=== PATIENT | female | born 1965 | race Caucasian/White ===

== ENCOUNTER 2025-05-10 12:17 | Emergency (ER) | payer MEDICAID ==
[~2025-05-10] VITALS: Ht 165.1 cm; Wt 118.2 kg
[2025-05-10 12:29] VITALS: TEMP 97.8
[2025-05-10 12:58] LABS: MEAN PLATELET VOLUME 8.1 FL (7.4-10.4); RED CELL DISTRIBUTION WIDTH 15.0 % (11.5-14.5)
[2025-05-10 13:59] LABS: CREATININE 0.95 MG/DL (0.40-0.90); TOTAL CARBON DIOXIDE 24.7 MMOL/L (24-32); eCRCL 56 ML/MIN; eGFR 60 ML/MIN
--- NOTE | 2025-05-10 15:17 | Physician Documentation ---
History of Present Illness ~ Chief Complaint: Abdominal Pain Stated Complaint: ABD PAIN Time Seen by MD: 16:13 HPI This is a 59-year-old female with a history of gastroparesis who presents with one day of right groin pain radiating down her right thigh, patient reports a feeling of tingling in her upper thigh. This patient states that she took one of the GLP 1 drugs and developed severe abdominal pain and required hospitalization. She adds that is since then she has had occasional gastroparesis states that recently she has had ongoing constipation. Takes she took MiraLax and Dulcolax without much benefit today she primarily complains of abdominal pain and right groin pain which he attributes to a hernia Day of Onset: May 10, 2025 Medication Reconciliation Allergies: Coded Allergies: latex (Verified Allergy, Unknown, 05/10/25) Scheduled Polyethylene Glycol 3350* (Miralax*), 1 PKT PO DAILY Scheduled PRN Hydrocodone Bit/Acetaminophen (Hydrocodone-Apap 10-325 Tablet), 1 TAB PO QID PRN PRN for pain Past Medical History Past Medical History: *GI/HEPATOBILIARY* (Gastroparesis) Review of Systems All Other Systems at this time: Reviewed and Negative ROS As stated above in the HPI, otherwise all systems are reviewed and negative. Physical Exam Vital Signs: Temperature: 97.8, Source: Temporal, Heart Rate: 54, Respiratory Rate: 18, BP: 145/103, Pulse Oximetry: 98, Weight: 118.180 Physical Exam VITALS: Reviewed and as above. GENERAL: Alert, nontoxic appearing, no apparent distress. HEENT: RESPIRATORY: No increased work of breathing, no respiratory distress, speaking in full clear sentences CHEST: CV: BACK: GI: tender to the right groin area via palpation , mild abdominal distention MUSCULOSKELETAL: SKIN: NEURO: PSYCH: Progress Results/Orders Results/Orders Orders - JEREMY GARCIA [employer]MECHANIC Ct Abdomen Pelvis (05/10/25 16:46) Completed Orders - JEREMY GARCIA [employer]/MECHANIC Ct Abdomen Pelvis (05/10/25 16:46) Vital Signs 05/10/25 05/10/25 05/10/25 05/10/25 12:29 16:26 17:27 17:46 Temp 97.8 Pulse 54 50 40 Resp 18 14 B/P (MAP) 145/103 144/87 (106) Pulse Ox 98 98 98 05/10/25 17:53 Pulse 40 B/P (MAP) 169/80 Pulse Ox 98 Laboratory Tests Test 05/10/25 12:43 White Blood Count 7.0 Red Blood Count 5.14 Hemoglobin 15.4 Hematocrit 46.2 H Mean Corpuscular Volume 89.8 Mean Corpuscular Hemoglobin 30.0 Mean Corpuscular Hemoglobin Concent 33.3 Red Cell Distribution Width 15.0 H Platelet Count 295 Mean Platelet Volume 8.1 Neutrophils (%) (Auto) 66.0 Lymphocytes (%) (Auto) 20.0 L Monocytes (%) (Auto) 6.9 Eosinophils (%) (Auto) 6.4 H Basophils (%) (Auto) 0.7 Neutrophils # (Auto) 4.6 Lymphocytes # (Auto) 1.4 Monocytes # (Auto) 0.5 Eosinophils # (Auto) 0.4 Basophils # (Auto) 0.0 CBC Comment Sodium Level 139 Potassium Level 4.4 Chloride Level 105 Carbon Dioxide Level 24.7 Anion Gap 9 Blood Urea Nitrogen 21 H Creatinine 0.95 H Estimated GFR/1.73 m2 60 BUN/Creatinine Ratio 22.1 H Glucose Level 88 Calcium Level 9.1 Total Bilirubin 0.9 Aspartate Amino Transf (AST/SGOT) 31 Alanine Aminotransferase (ALT/SGPT) 62 Alkaline Phosphatase 109 Total Protein 7.5 Albumin 3.5 Globulin 4.0 Albumin/Globulin Ratio 0.9 L Amylase Level 55 Lipase 23 Chemistry Comments Medical Decision Making Findings MSE performed in triage and patient returned to ED lobby by nursing staff to await available ED room CT indicates strangulation of a ventral hernia. However clinically, I suspect that the patient has an incarcerated fat filled hernia without evidence of bowel. Physical exam did not show any signs of reddened skin or stranding on the exterior. And does not have peritonitis Patient's pain appears to be manageable in the outpatient setting via pain medication. Her laboratory values show no signs of infection. Additionally, the patient's pain is primarily in the right pelvic region for unknown reasons as there was no acute findings in the CT I spoke with Dr. Cho regarding the patient he agrees that based on the patient's status that he would be happy to see her in the outpatient setting at his office Diff Dx GI Bleed:Consideration: Unlikely: AE fistula, Angiodysplasia, Bleeding diathesis, Blood loss anemia, Carcinoma, Diverticulosis, Diverticulitis, Esophageal varicies, Esophagitis, Gastritis, Gastroenteritis, Inflammatory BD, Juli-Aguilar syndrome, Meckel's diverticulum, PUD, Other Diff Dx Pain:Considerations: Unlikely: AAA, -Complete, - Incomplete, -Inevitable, -Missed, -Threatened, Abruptio placentae, Angina/OR, Aortic dissection, Appendicitis, Bowel obstruction, Cholangitis, Cholecystitis, Cholelithasis, Constipation, Diverticular disease, Dysmenorrhea, Ectopic , Esophageal rupture, Esophagitis, Gastritis/PUD, Gastroenteritis, GI hemorrhage, Hernia, Hepatitis, Inflammatory BD, Ischemic bowel, Mass, Ovarian cyst/torsion, Pancreatitis, PID, Porphyria, Trauma, intraabdominal, Urinary obstruction, Urinary tract infection, Urolithiasis, Other Diff Dx N/V/D:Considerations: Include: Appendicitis, Bowel obstruction, Dehydration, DKA, Diarrhea - bacterial, Diarrhea - parasitic, Diarrhea - viral, Diverticulitis, Diverticulosis, Drug toxicity, Electrolyte imbalance, Food poisoning, Gastroenteritis, GE reflux, GI bleed, Hepatitis, Hernia, Hypovolemia, Hypotension, Inflammatory BD, Impaction, Malnutrition, Pancreatitis, , PUD, Renal failure, Urolithiasis, Urinary obstruction, UTI, Other Diff Dx Rectal:Considerations: Unlikely: Fissure, Fistula, Foreign body, Impaction, Perirectal abscess, Rectal prolapse, Subcutaneous abscess, Thrombosed hemorrhoid, Ulcer, UTI, Other Departure Disposition: 01 HOME / SELF CARE / HOMELESS Impression: Primary Impression: Abdominal pain Additional Impression: Ventral hernia Condition: Stable Discharge Instructions: Hernia, Adult, [id number] Additional Instructions: May follow up with Dr. Cho for further evaluation of your hernia. I talked to him about your case in he is happy to see you in his office Referrals: NO PRIMARY CARE PROVIDER (PCP) TAWANA CHO MD Prescriptions Hydrocodone Bit/Acetaminophen (Hydrocodone-Apap 10-325 Tablet) 10mg/325mg Tablet 1 TAB PO QID PRN PRN for pain for 5 Days, #20 TAB Prov: JEREMY GARCIA NP 05/10/25 Polyethylene Glycol 3350* (Miralax*) 1 Packet Packet 1 PKT PO DAILY for constipation, #30 PKT dissolve in water Prov: JEREMY GARCIA NP 05/10/25 Signature Scribe Signature: j Attestation: Scribed for Jeremy Garcia Np by Jeremy Bashir NP . 05/10/25 16:32 TAWANA ANG May 10, 2025 15:17 JEREMY GARCIA NP May 10, 2025 16:33
[2025-05-10 16:26] VITALS: RESP 14
--- NOTE | 2025-05-10 17:08 | RADIOLOGY REPORT ---
COMPUTERIZED TOMOGRAPHY ABDOMEN AND PELVIS WITHOUT CONTRAST REASON FOR EXAM: hernia and constipation COMPARISON: None TECHNIQUE: Spiral scans were acquired from the diaphragm to the symphysis pubis without intravenous contrast administration. 2-D coronal and sagittal reformatted images were provided. Radiation optimization: All CT scans at this facility use at least one of these dose optimization techniques: Automated exposure control mA and/or kV adjustment per patient size (includes targeted exams where dose is matched to clinical indication) or iterative reconstruction. RADIATION DOSE: CTDI: 37 mGy DLP: 1850 mGy-cm FINDINGS: There is mild centrilobular emphysematous change of the lung bases. The visualized lung bases are otherwise clear. There is no pleural effusion. There is no pericardial effusion. There is a small hiatal hernia. There are surgical changes at the diaphragmatic hiatus. The spleen is not enlarged. The liver is within normal limits for size and contour. Evaluation of the abdominal organs is suboptimal in the absence of intravenous contrast. There is a 2.3 cm calcified gallstone. There is no pericholecystic edema. Unenhanced appearance of the pancreas is unremarkable. The adrenal glands are normal. The right kidney is surgically absent. The left kidney is morphologically normal. There are several simple appearing parapelvic cysts in the left kidney which require no dedicated follow-up. There is no hydronephrosis. No renal, ureteral, or bladder calculus is identified. The urinary bladder is unremarkable. The uterus and ovaries are within normal limits. No free fluid is identified in the abdomen or pelvis. There is no pathologic lymphadenopathy by size criteria. There is extensive sigmoid diverticulosis without evidence of diverticulitis. The appendix is normal. The colonic stool burden is small. There is no pathologic distention of the small bowel. There is a fat containing infraumbilical ventral abdominal wall 1.6 cm fascial defect containing mild fat stranding. More inferiorly there is an additional fat containing ventral abdominal wall hernia with a 2.0 cm fascial defect. There is mild chronic appearing compression deformity of the superior endplate of L1. There is 9 mm anterolisthesis (grade 1) of L4 on L5 secondary to facet arthropathy. No acute osseous abnormality is identified. IMPRESSION: Infraumbilical ventral abdominal wall defects containing herniated fat, one of which demonstrates mild fat stranding that may be secondary to strangulation. Correlate clinically with palpation. Normal appendix Sigmoid diverticulosis without evidence of diverticulitis. Cholelithiasis without CT evidence of acute cholecystitis. Prior right nephrectomy.
[2025-05-10] MEDS ORDERED: POLY17PO10 PO (17:27)
[2025-05-10] MEDS ORDERED: HYDR-3973 PO (17:27)
[2025-05-10 17:53] VITALS: BP 169/80; PULSE 40; O2SAT 98
== END 2025-05-10 17:55 | disposition home or self-care (01) ==
LOC: ER 12:19
DX: K43.9 Ventral hernia without obstruction or gangrene (principal); Z91.040 Latex allergy status; Z79.899 Other long term (current) drug therapy
CPT/HCPCS: 36415; 74176; 80053; 82150; 83690; 85025; 99284